=== PATIENT | male | born 1945 | race Caucasian/White ===

== ENCOUNTER 2017-02-19 16:18 | Emergency (ER) | payer MEDICARE, OTHER ==
[~2017-02-19] VITALS: Ht 180.3 cm; Wt 105.0 kg
[2017-02-19] MEDS ORDERED: SODIUM CHLORIDE FLUSH 10ML SYR IVF ONE (16:30)
[2017-02-19] MEDS ORDERED: SODIUM CHLORIDE 0.9% 1,000ML IV ONE (16:30)
[2017-02-19] MEDS ORDERED: DIAZEPAM 5 MG/ML, 2ML IVPush ONE (16:30)
[2017-02-19] MEDS ORDERED: DIAZEPAM 5 MG/ML, 2ML ONE (16:42)
[2017-02-19] MEDS ORDERED: MORPHINE SULFATE 4 MG/ML, 1ML ONE ×3 (16:42→18:19)
[2017-02-19] MEDS: MORPHINE SULFATE 4 MG/ML, 1ML IVPush PRN ×2 (16:45→17:35)
[2017-02-19] MEDS ORDERED: ACET325T14 PO (16:50)
[2017-02-19] MEDS ORDERED: SERT50TA5 PO (16:50)
[2017-02-19] MEDS ORDERED: LISI-170 PO (16:50)
[2017-02-19] MEDS ORDERED: ASPI-496 PO (16:50)
[2017-02-19] MEDS ORDERED: OMEP-110 PO (16:50)
[2017-02-19] MEDS ORDERED: AMPH20CA7 PO (16:50)
[2017-02-19] MEDS ORDERED: LOVA40TA2 PO (16:50)
[2017-02-19] MEDS ORDERED: PLEASE ENTER ALLERGIES MC SCH ×2 (17:00)
[2017-02-19 17:12] LABS: BLOOD UREA NITROGEN 26 mg/dL (7-18)
[2017-02-19] MEDS ORDERED: KETOROLAC 30 MG/1 ML IVPush ONE (17:30)
[2017-02-19] MEDS ORDERED: KETOROLAC 30 MG/1 ML ONE (17:34)
[2017-02-19] MEDS ORDERED: HYDROcodone/APAP 5/325 TABLET ONE (18:20)
[2017-02-19 18:24] VITALS: BP 120/71
[2017-02-19] MEDS ORDERED: MORPHINE SULFATE 4 MG/ML, 1ML IVPush ONE (18:30)
[2017-02-19] MEDS ORDERED: HYDROcodone/APAP 5/325 TABLET PO ONE (18:30)
== END 2017-02-19 19:14 | disposition home or self-care (01) ==
LOC: ED 19:08
DX: M54.5 Low back pain (principal)
CPT/HCPCS: 36415; 72110; 80048; 82040; 85025; 96361; 96374; 96375; 96376; 99285; J1885; J3360; J7030